=== PATIENT | female | born 1995 | race Caucasian/White ===

== ENCOUNTER 2023-11-10 18:57 | Outpatient (CLI) | payer OTHER ==
[2023-11-10 20:33] LABS: Appearance,Urine Cloudy (Clear); Bacteria,Urine Occasional /hpf; Bilirubin,Urine Negative (Negative); Blood,Urine Large (Negative); Color,Urine Colorless; Glucose,Urine (UA) Negative (Negative); Ketones,Urine Negative (Negative); Leukocyte Esterase,Urine Negative (Negative); Mucus,Urine Rare /hpf; Nitrite,Urine Negative (Negative); Protein,Urine Negative (Negative); RBC,Urine >182 /hpf (0-5); Specific Gravity,Urine 1.006 (1.001-1.035); Squamous Epithelial Cell,Urine 8 /hpf (0-4); Urobilinogen,Urine <2.0 mg/dL (<2.0); WBC,Urine 3 /hpf (0-5)
[2023-11-10 21:03] VITALS: BP 126/61; PULSE 106; RESP 18; TEMP 99.3
--- NOTE | 2023-11-14 10:40 | P.MSEPDOC ---
Presenting Problems - Arrival Data Date of Arrival on Unit: 11/10/23 Time of Arrival on Unit: 18:58 Mode of Transport: Ambulatory - Complaint OB-Reason for Admission/Chief Complaint: Signs/Symptoms UTI Comment: dark and blood in urine with burning during urination Medical History - Information : 1 Para: 0 Term: 0 : 0 Abortions: Spontaneous or Elective: 0 Number of Living Children: 0 - Gestational Age Gestational Age by OCTAVIA (wks/days): 31 Weeks and 0 Days Review of Systems - Review of Systems Constitutional: No problems Breast: No problems ENT: No problems Cardiovascular: No problems Respiratory: No problems Gastrointestinal: No problems Genitourinary: No problems Musculoskeletal: No problems Neurological: No problems Skin: No problems Vital Signs - Temperature Temperature: 99.3 F Temperature Source: Temporal Artery Scan - Pulse Right Pulse Rate: 106 Pulse Assessment Method: Pulse Oximetry - Respirations Respiratory Rate: 18 Oxygen Delivery Method: Room Air O2 Sat by Pulse Oximetry: 100 - Blood Pressure Right Arm Blood Pressure: 126/61 Blood Pressure Mean: 82 Blood Pressure Source: Automatic Cuff Medical Screen Scoring - Cervical Exam Membranes: Intact - Uterine Contractions Frequency From (mins): 3 Frequency To (mins): 4 Duration From (seconds): 50 Duration To (seconds): 60 Intensity: Mild Resting: Soft to palpation - Assessment - Baby A Baseline FHR: 135 Heart Rate - NICHD Category: Category I (Normal) NST: Reactive Physician Notification - Physician Notified Physician Notified Date: 11/10/23 Physician Notified Time: 19:33 Physician: Riana Velasco New Order Received: Yes (Urinalysis, urine culture) - Notification Comment Comment: reviewed results of urinalysis with Dr Velasco, per resutmoni Velasco wants a urince culture done Maternal Triage Index - Maternal Triage Index Presenting for scheduled procedure w/no complaint: No - Stat/Priority 1 Stat Priority 1: No - Urgent/Priority 2 Urgent Priority 2: No - Prompt/Priority 3 Prompt Priority 3: No - Non-Urgent/Priority 4 Non-Urgent Priority 4: Yes Criteria Met for Priority 4: S/Sx of uti Disposition - Disposition OB Disposition: Discharge to home Discharge Date: 11/10/23 Discharge Time: 20:41 I agree with the RN Medical Screening Exam: Yes Case reviewed; plan agreed upon as documented in EMR&OBIX.: Yes Diagnosis: HEMATURIA, UNSPECIFIED
== END 2023-11-10 20:41 ==
LOC: FBPOP 18:57
PROVIDERS: ATTEND Obstetrics & Gynecology
DX: O99.891 Other specified diseases and conditions complicating pregnancy (principal); R31.9 Hematuria, unspecified; Z3A.31 31 weeks gestation of pregnancy; Z91.018 Allergy to other foods
CPT/HCPCS: 59025; 81001; 87086; 99213

== ENCOUNTER 2024-01-10 02:20 | Inpatient (IN) | payer BC ==
[2024-01-10] MEDS ORDERED: TERBUTALINE 1 MG/ML VIAL SQ PRN (02:58)
[2024-01-10] MEDS ORDERED: OXYTOCIN 10 UNIT/ML 1 ML VIAL IM PRN (02:58)
[2024-01-10] MEDS ORDERED: CARBOPROST TROMETHAMINE 250 MCG/ML 1 ML AMP IM PRN ×2 (02:58→16:24)
[2024-01-10] MEDS ORDERED: LIDOCAINE 0.5% (PF) 5 MG/ML (50 ML SDV) SQ PRN (02:58)
[2024-01-10] MEDS ORDERED: miSOPROStoL 200 MCG TAB RECTAL PRN (02:58)
[2024-01-10] MEDS ORDERED: TRANEXAMIC 1,000 MG/100ML-NACL 1,000 MG in EMPTY BAG 1 BAG IV PRN (02:58)
[2024-01-10] MEDS ORDERED: miSOPROStoL 200 MCG TAB PO PRN ×2 (02:58→16:24)
[2024-01-10] MEDS ORDERED: METHYLERGONOVINE 0.2 MG/ML 1 ML AMP IM PRN ×2 (02:58→16:24)
[2024-01-10] MEDS: LACTATED RINGERS 1,000 ML IV SCH ×2 (04:13→23:01)
[2024-01-10 04:33] LABS: Basophils % (A) 0 %; Eosinophils # (A) 0.2 k/uL (0-0.7); Eosinophils % (A) 2 %; HCT 36.8 % (34.0-46.0); HGB 11.9 gm/dL (11.4-16.0); Lymphocytes # (A) 1.8 k/uL (1.0-4.8); Lymphocytes % (A) 18 %; MCHC 32.3 g/dL (31.0-37.0); MCV 89.7 fL (80.0-100.0); Mean Platelet Volume 9.6; Monocytes # (A) 0.9 k/uL (0-1.0); Monocytes % (A) 9 %; Neutrophils % (A) 69 %; Platelet Count 190 k/uL (150-450); RDW 13.9 % (11.5-15.5); WBC 10.1 k/uL (3.8-10.6)
[2024-01-10] MEDS: OXYTOCIN 30 UNITS/500 ML NS 30 UNIT in SALINE 1 500ML.BAG IV SCH (08:30)
[2024-01-10] MEDS ORDERED: fentaNYL (PF) 50 MCG/ML 5 ML AMP ONE (09:05)
[2024-01-10] MEDS ORDERED: SODIUM CHLORIDE 0.9% 250 ML BAG ONE (09:05)
[2024-01-10] MEDS ORDERED: ROPIVACAINE 5 MG/ML 30 ML VIAL ONE (09:05)
[2024-01-10] MEDS: AMPICILLIN 2,000 MG in SODIUM CHLORIDE 0.9% 100 ML IVPB STA (13:00)
[2024-01-10] MEDS: CITRIC ACID-SODIUM CITRATE 15 ML CUP PO ONE (16:20)
[2024-01-10] MEDS ORDERED: ACETAMINOPHEN IV (For NPO) 1,000 MG/100 ML VIAL ONE (16:36)
[2024-01-10] MEDS ORDERED: MORPHINE SULFATE (PF) 0.3 MG/0.3 ML SYR ONE (16:36)
[2024-01-10] MEDS ORDERED: OXYTOCIN 30 UNITS/500 ML NS BAG IV ONE (16:36)
[2024-01-10] MEDS ORDERED: ONDANSETRON 4 MG/2 ML VIAL ONE (16:36)
[2024-01-10] MEDS ORDERED: ceFAZolin 1 GM/50 ML BAG (PMX) ONE (16:36)
[2024-01-10] MEDS ORDERED: PHENYLEPHRINE-0.9% NACL SYG 1,000 MCG/10 ML SYRINGE ONE (16:36)
--- NOTE | 2024-01-10 17:23 | P.OP ---
Date of Procedure: 01/10/24 Preoperative Diagnosis: IUP at 39-5/7 weeks, maternal fever, tachycardia Postoperative Diagnosis: Same Procedure(s) Performed: Primary low-transverse section Anesthesia: epidural Surgeon: Ana Goldberg Portfolio Mgr #1: Riana Velasco Estimated Blood Loss (ml): 509 IV fluids (ml): 1,000 Urine output (ml): 100 (blood tinged clearing by the time we left the OR) Pathology: other (Placenta) Condition: stable Disposition: PACU Indications for Procedure: 28-year-old at 39-5/7 weeks with maternal fever, and tachycardia. heart tones are discussed with patient and father the baby need for primary section secondary to nonreassuring status. Patient states understanding after all questions were answered patient agrees and wishes to proceed with primary Operative Findings: Viable female delivered at 1648, weight of 8 pounds 10 ounces, Apgars of 9 and 9 at 1 and 5 minutes respectively. did have a noted temp at [facility]. Lower uterine segment was noted to be very thin at the time of hysterotomy. Dangelo had noted blood-tinged urine at the time of delivery of the infant, infant was noted to be low in the pelvis. On inspection of the Dangelo catheter at the end of the procedure urine had cleared to yellow. Description of Procedure: The patient was prepped and draped in the usual fashion after epidural anesthesia was administered by the anesthesia department. A Pfannenstiel incision was made and extended of the abdominal cavity without difficulty. The bladder peritoneum was elevated and incised and reflected distally. A 2 cm incision was made in the transverse plane of the lower uterine segment to enter the uterus at which time clear fluid was noted. The incision was extended b luntly bilaterally. The head was encountered within the field and delivered up and through the incision where the nose and mouth were thoroughly suctioned. Remainder of the infant was delivered onto the surgical field where the cord was doubly clamped, cut, and the infant was passed for resuscitative measures with weight and Apgars as noted above. A segment of cord was then doubly clamped, cut, and set aside should cord gases become necessary. The placenta was delivered manually, intact, and was grossly normal with a grossly normal three-vessel cord. The uterus was exteriorized and the interior cavity of the uterus swept of any remaining placental and membranous fragments with a laparotomy sponge. The margins of the incision were grasped with Flower clamps and the incision closed in 2 layers. First layer was a running locking layer of 0 Vicryl from margin to margin followed by a second layer of imbricating 0 Vicryl from margin to margin. Eating was noted on the midportion of the hysterotomy incision therefore 2 [id number] sutures were used to obtain hemostasis. Any small points of bleeding were then made hemostatic with the Bovie. Once hemostasis was achieved, the posterior cul-de-sac was suctioned with a guard and the uterine and ovarian findings are as noted above. The uterus was replaced within the abdominal cavity and the gutters swept of any remaining blood fluid or clot. The incision was again reexamined and hemostasis was noted to be excellent. Any small point of bleeding were made hemostatic with the Bovie. Once hemostasis was achieved the parietal peritoneum was loosely reapproximated. The layer of muscles were examined and made hemostatic with the Bovie. Attention was then turned to the fascia which was closed with 0 Vicryl in a running fashion from 1 lateral edge to the other. The subcutaneous tissues were irrigated, made hemostatic with the Bovie, and reapproximated with a running stitch of 30 Vicryl. The skin was reapproximated with 4-0 Vicryl. Estimated blood loss for the case was approximately 509 mL. All sponge instrument and needle counts are correct. There were no complications. The patient tolerated the procedure well and proceeded to the recovery room in stable condition. Both mother and are resting comfortably in recovery.
--- NOTE | 2024-01-10 17:26 | P.HPOB ---
History of Present Illness H&P Date: 01/10/24 Chief Complaint: IUP at 39 5/7 weeks, spontaneous rupture of membrane 28-year-old G1, P0 at 39-5/7 weeks presented this morning with complaints of spontaneous rupture of membranes around 1 AM. Patient states fluid was clear in nature. Patient presented to labor and delivery around 2 AM was noted to be 2 cm. Patient declined Pitocin augmentation of labor at that time. Patient made 1 cm change at 8 AM therefore Pitocin augmentation of labor was suggested and she agreed. Is receiving routine care which has been essentially uncomplicated. Review of Systems Constitutional: Denies chills, Denies fatigue, Denies fever Ears, nose, mouth and throat: Reports headache Cardiovascular: Reports leg edema Respiratory: Denies dyspnea Gastrointestinal: Denies nausea, Denies vomiting Genitourinary: Reports Past Medical History Past Medical History: No Reported History History of Any Multi-Drug Resistant Organisms: None Reported Additional Past Surgical History / Comment(s): [place] teeth, ACL surgery Past Anesthesia/Blood Transfusion Reactions: No Reported Reaction Past Psychological History: No Psychological Hx Reported Smoking Status: Never smoker Past Alcohol Use History: None Reported Past Drug Use History: None Reported - Past Family History Mother Family Medical History: No Reported History Medications and Allergies Home Medications Medication Instructions Recorded Confirmed Type Aspirin [Children's Aspirin] 81 mg PO DAILY 11/10/23 01/10/24 History Vit No.179/Iron/Folic 1 tab PO DAILY 11/10/23 01/10/24 History [ Tablet] Allergies Allergy/AdvReac Type Severity Reaction Status Date / Time banana Allergy Anaphylaxis Verified 01/10/24 02:30 Exam Osteopathic Statement: *. No significant issues noted on an osteopathic structural exam other than those noted in the History and Physical/Consult. Vital Signs Temp Pulse Resp BP Pulse Ox 01/10/24 03:48 97.7 F 104 H 16 124/75 100 01/10/24 02:27 97.7 F 104 H 16 124/75 100 Intake and Output 01/10/24 01/10/24 01/10/24 06:59 14:59 22:59 Output Total 400 Balance -400 Output: Urine 400 Other: # Voids 1 Weight 95.254 kg Targeted physical exam is performed this date General Is well-nourished well- developed female in no acute distress, breathing is nonlabored, heart has a regular rate and rhythm, abdomen is gravid and appropriate for gestational age, heart tones noted be category 1 and she is lanny irregularly, on cervical exam per RN she is 3 cm, 90% effaced, Pitocin augmentation of labor is begun. Results Result Diagrams: 01/10/24 04:05 Assessment and Plan (1) Term Current Visit: Yes Status: Acute Code(s): Z34.90 - ENCNTR FOR SUPRVSN OF NORMAL , UNSP, UNSP TRIMESTER SNOMED Code(s): 82629618 (2) SROM (spontaneous rupture of membranes) Current Visit: Yes Status: Acute Code(s): EPF5012 - SNOMED Code(s): 994392551 Plan: 28-year-old 1 para 0 at 39-5/7 weeks that presents with spontaneous rupture of membranes. Patient is agreeable to Pitocin augmentation of labor. Patient is known GBS negative. Continuous monitoring, clear liquids as desired.
[2024-01-10] MEDS ORDERED: METOCLOPRAMIDE 5 MG/ML 2 ML VIAL IVP PRN (17:35)
[2024-01-10] MEDS ORDERED: ONDANSETRON 4 MG/2 ML VIAL IVP PRN (17:35)
[2024-01-10] MEDS ORDERED: SIMETHICONE 80 MG CHEWABLE PO PRN (17:35)
[2024-01-10] MEDS ORDERED: NALOXONE 0.4 MG/ML 1 ML VIAL IV PRN ×2 (17:35→19:05)
[2024-01-10] MEDS ORDERED: diphenhydrAMINE 50 MG CAP PO PRN (17:35)
[2024-01-10] MEDS ORDERED: diphenhydrAMINE 25 MG CAP PO PRN (17:35)
[2024-01-10] MEDS ORDERED: ZOLPIDEM 5 MG TAB PO PRN (17:35)
[2024-01-10] MEDS ORDERED: diphenhydrAMINE 50 MG/ML 1 ML VIAL IVP PRN ×2 (17:35)
[2024-01-10] MEDS ORDERED: OXYTOCIN 30 UNITS/500 ML NS 30 UNIT in SALINE 1 500ML.BAG IV SCH (17:35)
[2024-01-10] MEDS: AMPICILLIN 1,000 MG in SODIUM CHLORIDE 0.9% 50 ML IVPB SCH (18:57)
--- NOTE | 2024-01-10 20:54 | P.MSEPDOC ---
Presenting Problems - Arrival Data Date of Arrival on Unit: 01/10/24 Time of Arrival on Unit: 02:48 Mode of Transport: Wheelchair - Complaint OB-Reason for Admission/Chief Complaint: Rule Out SROM Comment: SROM clear fluid at 0130 Medical History - Information : 1 Para: 0 Term: 0 : 0 Abortions: Spontaneous or Elective: 0 Number of Living Children: 0 - Gestational Age Gestational Age by OCTAVIA (wks/days): 39 Weeks and 5 Days Review of Systems - Review of Systems Constitutional: No problems Breast: No problems ENT: No problems Cardiovascular: No problems Respiratory: No problems Gastrointestinal: No problems Genitourinary: No problems Musculoskeletal: No problems Neurological: No problems Skin: No problems Vital Signs - Temperature Temperature: 97.9 F Temperature Source: Temporal Artery Scan - Pulse Sitting Pulse Rate: 69 Pulse Assessment Method: Pulse Oximetry - Respirations Respiratory Rate: 16 - Blood Pressure Right Arm Sitting Blood Pressure: 112/62 Blood Pressure Mean: 78 Blood Pressure Source: Automatic Cuff Medical Screen Scoring - Cervical Exam Dilation (cm): 2 Effacement (%): 80 Station: -2 Membranes: Ruptured - Uterine Contractions Intensity: Mild Resting: Soft to palpation - Assessment - Baby A Baseline FHR: 145 NST: Non-reactive Physician Notification - Physician Notified Physician Notified Date: 01/10/24 Physician Notified Time: 02:49 Physician: Catrachita Morse Order Received: Yes (Admit for labor) Maternal Triage Index - Maternal Triage Index Presenting for scheduled procedure w/no complaint: No - Stat/Priority 1 Stat Priority 1: No - Urgent/Priority 2 Urgent Priority 2: No - Prompt/Priority 3 Prompt Priority 3: No - Non-Urgent/Priority 4 Non-Urgent Priority 4: Yes Criteria Met for Priority 4: SROM 0130, clear fluid. 80/-2 Disposition - Disposition OB Disposition: Admit, LDRP Suite I agree with the RN Medical Screening Exam: Yes Physician's MSE Comment: I have neither seen nor examined the patient Case reviewed; plan agreed upon as documented in EMR&OBIX.: Yes Diagnosis: RELATED CONDITIONS, UNSPECIFIED, THIRD TRIMESTER
[2024-01-10] MEDS: SENNOSIDES-DOCUSATE SODIUM 1 EACH TAB PO SCH (23:03)
[2024-01-10] MEDS: IBUPROFEN 600 MG TAB PO SCH (23:53)
[2024-01-11] MEDS: ACETAMINOPHEN TAB 500 MG TAB PO SCH (03:36)
[2024-01-11] MEDS: ACETAMINOPHEN IV (For NPO) 1,000 MG in EMPTY BAG 1 BAG IVPB SCH (04:08)
[2024-01-11] MEDS: IBUPROFEN IV 800 MG in SODIUM CHLORIDE 0.9% 250 ML IV SCH (04:09)
[2024-01-11] MEDS: LACTATED RINGERS 1,000 ML IV SCH (04:10)
[2024-01-11 06:57] LABS: Basophils % (A) 0 %; Eosinophils # (A) 0.1 k/uL (0-0.7); Eosinophils % (A) 1 %; HCT 35.7 % (34.0-46.0); HGB 11.6 gm/dL (11.4-16.0); Lymphocytes # (A) 1.6 k/uL (1.0-4.8); Lymphocytes % (A) 14 %; MCH 29.6 pg (25.0-35.0); MCHC 32.6 g/dL (31.0-37.0); MCV 90.8 fL (80.0-100.0); Mean Platelet Volume 9.3; Monocytes # (A) 0.6 k/uL (0-1.0); Monocytes % (A) 5 %; Neutrophils # (A) 9.1 k/uL (1.3-7.7); Neutrophils % (A) 78 %; Platelet Count 172 k/uL (150-450); RBC 3.93 m/uL (3.80-5.40); RDW 14.1 % (11.5-15.5); WBC 11.6 k/uL (3.8-10.6)
--- NOTE | 2024-01-11 07:34 | P.PN ---
Progress Note - Text Progress Note Date: 01/11/24 is a 28 -year-old female had a history of under epidural. Patient received Astramorph 3mg at the end of the procedure for postoperative pain control. Today POD #1, patient is comfortable sitting in her bed. Today patient rated her pain level 2-3 out of 10 in severity. Denied any fever, drowsiness, confusion. Denied any weakness, tingling sensation in her lower extremities. Denied any bowel or bladder problems. Moving all extremities without any difficulty, and able to walk without any difficulties. She is complaining of mild itching. As per patient which is bearable. Vitals: Hemodynamically stable Continue oral pain medication as per primary team. No complications related to anesthesia.
--- NOTE | 2024-01-11 08:39 | P.PNOBGPC ---
Subjective - Subjective Principal diagnosis: Postop day 1, primary Interval history: Patient is doing well this morning. She is ambulating and voiding without difficulty. She is tolerating clear liquids without nausea or vomiting. She denies concerns. She states her pain is well-controlled. Lochia is minimal, breast-feeding is going well. Patient reports: Reports appetite normal, Reports voiding normally, Reports pain well controlled, Reports ambulating normally : doing well, nursing well Objective - Vital Signs Latest vital signs: Vital Signs Temp Pulse Resp BP Pulse Ox 01/11/24 08:01 98.0 F 78 18 102/68 97 01/11/24 04:00 97.8 F 82 16 102/66 96 01/11/24 02:00 16 01/11/24 00:06 97 01/11/24 00:00 97.9 F 100 16 105/72 98 01/10/24 22:06 16 98 01/10/24 21:36 98.0 F 68 16 111/70 98 01/10/24 21:00 66 16 110/68 97 01/10/24 20:54 97.9 F 69 16 112/62 01/10/24 20:06 66 16 110/68 97 01/10/24 19:36 65 16 113/69 100 01/10/24 19:21 67 16 113/66 99 01/10/24 19:06 16 01/10/24 18:55 69 15 01/10/24 18:50 97.9 F 76 15 112/62 99 01/10/24 18:20 69 15 117/59 100 01/10/24 18:05 80 15 131/63 99 01/10/24 17:50 70 16 119/63 99 01/10/24 17:35 98.6 F 85 16 134/62 100 01/10/24 17:20 90 18 116/64 99 Intake and Output 01/10/24 01/11/24 01/11/24 22:59 06:59 14:59 Intake Total 435.0 Output Total 2150 2650 Balance -1715.0 -2650 Intake: Intake, IV Titration 435.0 Amount Oxytocin 30 Units/500 ml 435.0 Ns 30 unit In Saline 1 500ml.bag @ Per Protocol IV .Q0M [facility] Rx#:[id number] Output: Urine 1000 2650 Uretheral (Dagnelo) 700 Estimated Blood Loss 1018 Output, Quantitative 132 Blood Loss Other: Voiding Method Indwelling Catheter # Voids 1 - Exam Extremities: Present: normal, edema Abdomen: Present: normal appearance, soft Incision: Present: normal, dry, intact Uterus: Present: normal, firm - Labs Labs: Abnormal Lab Results - Last 24 Hours (Table) 01/11/24 Range/Units 06:41 WBC 11.6 H (3.8-10.6) k/uL Neutrophils # 9.1 H (1.3-7.7) k/uL Assessment and Plan (1) Term Current Visit: Yes Status: Acute Code(s): Z34.90 - ENCNTR FOR SUPRVSN OF NORMAL , UNSP, UNSP TRIMESTER SNOMED Code(s): 61261775 (2) SROM (spontaneous rupture of membranes) Current Visit: Yes Status: Acute Code(s): NKC6817 - SNOMED Code(s): 114130191 (3) Maternal fever during labor Current Visit: Yes Status: Acute Code(s): O75.2 - PYREXIA DURING LABOR, NOT ELSEWHERE CLASSIFIED SNOMED Code(s): 921124718 (4) Non-reassuring status Current Visit: Yes Status: Acute Code(s): IAG0787 - SNOMED Code(s): 985429819 (5) Status post section Current Visit: Yes Status: Acute Code(s): Z98.891 - HISTORY OF UTERINE SCAR FROM PREVIOUS SURGERY SNOMED Code(s): 160906288 Plan: Patient is doing well . Plan to continue routine care. Will discontinue bandage around 24 hours. Anticipate discharge home tomorrow.
[2024-01-11] MEDS: PRENATAL VIT-IRON-FOLIC ACID 1 EACH TABLET PO SCH (10:32)
[2024-01-12 00:46] VITALS: RESP 16
[2024-01-12 08:19] VITALS: BP 112/69; PULSE 86; TEMP 98.3
--- NOTE | 2024-01-12 12:27 | P.DS ---
Providers Date of admission: 01/10/24 03:08 Expected date of discharge: 01/12/24 Attending physician: Ana Goldberg Primary care physician: Stated None - Discharge Diagnosis(es) (1) Term Current Visit: Yes Status: Acute (2) SROM (spontaneous rupture of membranes) Current Visit: Yes Status: Acute (3) Maternal fever during labor Current Visit: Yes Status: Acute (4) Non-reassuring status Current Visit: Yes Status: Acute (5) Status post section Current Visit: Yes Status: Acute Hospital Course: this is a 28 yo G1 now P1 that presented to labor and perez with complaints of SROM. for full details on this patient please see the dictated history and ohysical. she was admitted to labor and delivery and labor was augmented with pitocin. she made good progress in labor, and did progress to complete, with pushing maternal fever was noted along with intolerance of labor. she was counseled on section, due to intolerance of labor. she was taken back to the operating room and viable female was delivered. viable female wilda, 8-10. Please see the operative report for full details. she has done well post operatively, on this post operative day number 2 she is doing well. She is ambulating and voiding without difficulty, pain is well controlled. she is tolerating a regular diet without nausea and vomitting. she is feeling well and desires discharge home. Patient Condition at Discharge: Good Plan - Discharge Summary New Discharge Prescriptions: No Action Aspirin [Children's Aspirin] 81 mg PO DAILY Vit No.179/Iron/Folic [ Tablet] 1 tab PO DAILY Discharge Medication List Aspirin [Children's Aspirin] 81 mg PO DAILY 11/10/23 [History] Vit No.179/Iron/Folic [ Tablet] 1 tab PO DAILY 11/10/23 [History] Follow up Appointment(s)/Referral(s): Ana Goldberg DO [Doctor of Osteopathic Medicine] - 01/24/24 1:15 pm (Post appointment 02-21-2024 at 11:30am) Patient Instructions/Handouts: (DC), (GEN) Activity/Diet/Wound Care/Special Instructions: no tub baths or intercourse, OTC ibuprofen 600mg as needed for pain, 3 tabs otc. FU 2 weeks for incision check. Discharge Disposition: HOME SELF-CARE
== END 2024-01-12 13:45 | disposition home or self-care (01) | DRG 787 ==
LOC: FBPOP 02:20 → 4FBP 03:08
PROVIDERS: ADMIT Obstetrics & Gynecology; ATTEND Obstetrics & Gynecology Obstetrics
PROC: 10D00Z1 Extraction of Products of Conception, Low, Open Approach (ICD-10-PCS; principal; 2024-01-10 16:36)
DX: O76 Abnormality in fetal heart rate and rhythm complicating labor and delivery (principal); O75.2 Pyrexia during labor, not elsewhere classified; R31.0 Gross hematuria; Z37.0 Single live birth; Z3A.39 39 weeks gestation of pregnancy; Z79.82 Long term (current) use of aspirin
CPT/HCPCS: 59025; 84112; 85025; 86850; 86900; 86901; 88307; 99213